=== PATIENT | female | born 1990 | race Caucasian/White ===

== ENCOUNTER → 2016-12-20 | Outpatient (CLI) | payer OTHER ==
[~2016-12-20] VITALS: Ht 172.7 cm; Wt 85.0 kg
[~2016-12-20] MED LIST: AUGMENTIN875 MG PO; BENADRYL25 MG PO; BIRTH CONTROL PILLS; SERTRALINE HCL50 MG PO; ZANTAC150 MG PO
[2016-12-20 16:10] VITALS: BP 121/81
== END | disposition home or self-care (01) ==
LOC: IVINF 15:55
DX: Z31.82 Encounter for Rh incompatibility status (principal); Z3A.28 28 weeks gestation of pregnancy; Z67.11 Type A blood, Rh negative
CPT/HCPCS: 96372

== ENCOUNTER 2017-03-05 21:17 | Inpatient (IN) | payer OTHER ==
[~2017-03-05] VITALS: Ht 172.7 cm; Wt 94.3 kg
[~2017-03-05 21:17] MED LIST changes: +IRON325 M1 PO; +LANSOPRAZOLE15 MG PO
[2017-03-05 21:31] VITALS: BP 132/79
[2017-03-05 21:33] VITALS: BP 132/79
[2017-03-05 23:05] LABS: AMPHETAMINES QUANT VALUE 0 NG/ML; BARBITUATES QUANT VALUE 0 NG/ML; BENZODIAZEPINES QUANT VALUE 0 NG/ML; BENZODIAZEPINES, URINE SCREEN Negative (200 ng/mL); MARIJUANA QUANT VALUE 0 NG/ML; OPIATES QUANTITATIVE VALUE 0 NG/ML; PHENCYCLIDINE QUANT VALUE 0 NG/ML
[2017-03-05 23:06] VITALS: BP 116/78
[2017-03-06] VITALS (26 sets, daily range): BP systolic 101–161; BP diastolic 57–88
[2017-03-06] MEDS ORDERED: PERCOCET 5/31 TABLET PO (09:48)
[2017-03-06] MEDS ORDERED: MOTRIN800 MG PO (09:48)
[2017-03-07 06:51] LABS: EOSINOPHIL (%) 0.8 % (0-5); EOSINOPHIL COUNT 0.1 K/uL (0-0.3); HEMATOCRIT 27.9 % (36.0-46.0); IMMATURE GRANULOCYTE (%) 0.9 % (0.0-0.7); IMMATURE GRANULOCYTE COUNT 0.1 K/uL; INSTRUMENT ABS NEUTROPHIL CT 10.7 K/uL; LYMPHOCYTE COUNT 2.8 K/uL (1.0-2.8); MCH 30.3 PG (29.0-34.0); MCHC 33.3 G/DL (30.0-36.0); MCV 90.9 FL (83-99); MEAN PLAT.VOLUME 13.7 uM^3 (9.5-12.4); NEUTROPHIL COUNT 10.7 K/uL (1.8-6.4); RBC DIS.WIDTH-CV 14.8 % (11.8-14.6); RBC DIS.WIDTH-SD 48.4 % (39-53); WHITE BLOOD COUNT 14.9 K/uL (4.1-10.2)
[2017-03-07 06:57] LABS: PLATELET COUNT 130 K/uL (156-360); RED BLOOD COUNT 3.07 M/uL (3.80-5.20)
[2017-03-07 08:08] VITALS: BP 130/78
[2017-03-07 11:00] VITALS: BP 124/69
[2017-03-07 14:46] VITALS: BP 135/76
[2017-03-08 07:55] VITALS: BP 140/74
[2017-03-08 15:40] VITALS: BP 130/79
[2017-03-09 07:26] VITALS: BP 122/68
[2017-03-09 14:11] VITALS: BP 124/67
== END 2017-03-09 15:35 | disposition home or self-care (01) | DRG 766 ==
LOC: LDRP-OP 21:17 → 2WEST 21:18 → LDRP-OP 04-12 15:49
PROVIDERS: Nurse Practitioner; Obstetrics & Gynecology
PROC: 10D00Z1 Extraction of Products of Conception, Low, Open Approach (ICD-10-PCS; principal; 2017-03-06)
DX: O34.211 Maternal care for low transverse scar from previous cesarean delivery (principal); O36.0930 Maternal care for other rhesus isoimmunization, third trimester, not applicable or unspecified; O99.344 Other mental disorders complicating childbirth; Z37.0 Single live birth; N85.8 Other specified noninflammatory disorders of uterus; F41.9 Anxiety disorder, unspecified; O42.92 Full-term premature rupture of membranes, unspecified as to length of time between rupture and onset of labor; Z3A.39 39 weeks gestation of pregnancy; Z87.891 Personal history of nicotine dependence
CPT/HCPCS: 36415; 80306 90; 83030; 85025; 86870; 86900; 86901; 86920; 86999; C1755; G0378; J1050; J1100; J1200; J1580; J1885; J2270; J2274; J2405; J2790; J3010; J7050; J7120